=== PATIENT | female | born 1995 | race Caucasian/White ===

== ENCOUNTER 2025-05-04 22:31 | Emergency (ER) | payer SELFPAY ==
--- OUTSIDE RECORDS SUMMARY | 2023-11-09 09:30 | XMS_ITS ---
Author Organization [facility] Address [address] [place] [address] Care Team Providers Care All Round Butcher Name Role Phone Emily Ko Primary Care Provider Unavailab Deborah Owens Unavailable [phone] Mis Lao Unavailable Unavailable Maya Chong Unavailable [phone] REASON FOR VISIT sut Encounters Encounter Location Date Provider Diagnosis [facility] [address] [place] [id number] 11/09/2023 Maya Chong Plan Of Treatment No Information Progress Notes * Ellie LYDOB:1995 (29 yo F)Acc No.[id number]:11/09/2023 Patient: Kelton Ellie cool Provider: Kelton Chong PA-C :1995 A ge:28 Y S ex:Female Date:11/09/2023 Address:[address], [id number] Pcp:Emily Ko Patient's Default Facility:[facility] * Electronic signature of Christiane Chong PA-C on 05/04/2025 at 10:41 PM [facility] Sign off status: Pending * Provider: Kelton Chong PA-C Date: 0 11/09/2023 Generated for Abraham arango/Raisa/eTransmitting on: 1 07/04/2024 10:41 PM [facility]
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
--- OUTSIDE RECORDS SUMMARY | 2025-05-04 22:41 | XMS_ITS | Data Portability ---
Author Organization PUNEET Lugo MD, Main Office Address [address] [place], [place] [address] [address] [place] [address] Care Team Providers Care Slice Plug Cutter Operator Name Role Phone [facility] Primary Care Provide r Assessment No assessment recorded. Plan of Treatment Reminders Order Date Submit Date Provider Last Modified By Organization Details Last Modified Time Details Appointments None recorded. Lab vitamin D, 25-hydroxy , total, serum [address] (Central Scheduling), [address] [place], [place] [address], [address], 8 13:09:03 BMP, blood [address] (Central Scheduling), [address] [place], [place] [address], [address], 8 13:09:03 HbA1c (hemoglobi n A1c), blood [address] (Central Scheduling), [address] [place], [place] [address], [address], 8 13:09:03 lipid panel, blood [address] (Central Scheduling), [address] [place], [place] [address], [address], 8 18:48:29 HbA1c (hemoglobi n A1c), blood [address] (Central Scheduling), [address] [place], [place] [address], [address], 8 18:48:28 TSH + T4, serum [address] (Central Scheduling), [address] [place], [place] [address], [address], 8 18:48:28 thyroperox idase Ab, serum [address] (Central Scheduling), [address] [place], [place] [address], [address], 8 10:11:55 TSH, serum or plasma [address] (Central Scheduling), [address] [place], [place] [address], [address], 8 10:11:55 CBC w/ diff [address] (Central Scheduling), [address] [place], [place] [address], [address], 8 18:48:28 CMP, serum or plasma [address] (Central Scheduling), [address] [place], [place] [address], [address], 8 18:48:28 vitamin D, 25-hydroxy , total, serum 2017 018 [facility] (Central Scheduling), [address] [place], [place] [address], [address], 8 14:27:56 vitamin B12 + folate, serum or blood 2017 018 [facility] (Central Scheduling), [address] [place], [place] [address], [address], 8 12:03:54 Referral endocrinol ogy referral - 22 YO Female w/ worsening fatigue, h/o treatment for hyperinsul inism, obesity, & thyroid disorder. Please evaluate & treat. Thanks 2017 018 ANGEL Miller MD, [address] [place], [address], 8 23:57:43 Procedures None recorded. Surgeries None recorded. Imaging None recorded. Medication Orders Vitamin D2 1,250 mcg (50,000 unit) capsule 2017 [facility], [address] [place] [address], [place], [address], 8 13:49:13 Patient TargetsNo targets recorded. Patient Instructions Encounter Date Encounter Id Patient Instructions Last Modified By Organization Details Last Modified Time 10/06/2017 [id number] Quitting Tobacco : Care Instructions Not available 10/06/2017 15:47:13 smoking cessatio n counseling, greater than 3 minutes up to 10 minutes* Not available 10/14/2017 13:06:22 1. Continue current medications. 2. Maintain a low sodium, low carbohydrate, moderate protein eating pattern. 3. Increase exercise as tolerated. Not available 10/06/2017 15:38:21 1. Patient education provided regarding medical diagnosis, medication dose/adherence, diet, exercise, & treatment plan. 2. Patient's comprehension is good. Labs ordered. 3. Patient was offered a copy of today's visit summary. 4. Continue f/u w/ subspecialists; n/a. 5. Patient understands her role & personal responsibility for physical & emotional health. Health Maintenance: Flu vaccine:07/2017 Pneumovax 23:n/a Prevnar 13:n/a Tdap:2014 Zostavax:n/a Pap:03/2017 MMG:n/a DEXA:n/a C-scope:n/a Not available 10/06/2017 17:45:35 10/20/2017 [id number] Quitting Tobacco : Care Instructions Not available 10/20/2017 13:42:39 1. Start Vitamin D2. 2. Maintain a low sodium, low carbohydrate, moderate protein eating pattern. 3. Increase exercise as tolerated. Not available 10/20/2017 12:34:38 1. Patient education provided regarding medical diagnosis, medication dose/adherence, diet, exercise, & treatment plan. 2. Patient's comprehension is good. Lab results reviewed w/ Pt. 3. Patient was offered a copy of today's visit summary. 4. Continue f/u w/ subspecialists; n/a. 5. Patient understands her role & personal responsibility for physical & emotional health. Health Maintenance: Flu vaccine:07/2017 Pneumovax 23:n/a Prevnar 13:n/a Tdap:2014 Zostavax:n/a Pap:03/2017 MMG:n/a DEXA:n/a C-scope:n/a Not available 10/20/2017 12:35:45 Reason for Referral Endocrinology Referral for H yperinsulinism Chronic fatigue, h/o very elevated insulin, high nl thyroid 22 YO Female w/ worsening fatigue, h/o treatment for hyperinsulinism, obesity, & thyroid disorder. Please evaluate & treat. Thanks Referring Physician: Ysabel Lugo, Internal Medicine, Encounter Date: 10/20/2017 Results Created Date Observation Date Name Description Value Unit Range Abnormal Flag Note LastModifiedBy Organization Detail LastModifiedTime Result Notes None recorded. Problems Name Problem SNOMED Code Status Onset Date Resolution Date Notes Provider Name and Address Organization Details Recorded Time Fatigue 03434225 Active 2017 [place] [address] [facility] [address], [place], [address], PUNEET Lugo MD 8 15:42:48 Tobacco dependence, continuous 694129004 Active 2017 [place] [address] [facility] [address], [place], [address], P[place]EET Lugo MD 8 15:42:50 Gestational diabetes mellitus 64356142 Active 2017 [place] [address] [facility] [address], [place], [address], PUNEET Lugo MD 8 15:42:51 Obesity 558768671 Active 2017 [place] [address] [facility] [address], [place], [address], PUNEET Lugo MD 8 15:43:23 Foot pain 82563391 Active 2017 [place] [address] [facility] [address], [place], [address], PUNEET Lugo MD 8 17:44:36 Anxiety disorder 936994963 Active 2017 [place] [address] [facility] [address], [place], [address], PUNEET Lugo MD 8 12:30:28 Past history of gestational diabetes mellitus 137268915 Active 2017 [place] [address] [facility] [address], [place], [address], PUNEET Lugo MD 8 12:31:00 Vitamin D deficiency 21247853 Active 2017 [place] [address] [facility] [address], [place], [address], PUNEET Lugo MD 8 12:33:29 Problem Notes None recorded. Procedures Surgical History Date Name Laterality Status Provider Name and Address Organization Details Recorded Time 08/24/19 18 [place] [address] [facility] [address], [place], [address], PUNEET Lugo MD 10/06/2017 18:26:40 04/19/20 17 Date of Last [place] [address] [facility] [address], [place], [address], [place]UNEET Lugo MD 10/06/2017 18:37:43 06/13/19 14 Tooth root removal completed Shira Santos MD 10/06/2017 14:56:36 06/13/19 02 Tonsillectomy completed Shira Santos MD 10/06/2017 14:56:46 06/13/18 96 Ear Tube completed Shira Santos MD 10/06/2017 14:57:01 Imaging Results None recorded. Procedure Notes None recorded. Medical Equipment Implant [employer] Issuing Agency Serial Number Lot Number Status Provider Name and Address Organization Details Recorded Time [place] [address] [facility] [address], [place], [address] PUNEET Lugo MD 10/06/2017 15:38:49 Allergies Allergen ID Allergen Name Allergen Category Reaction Reaction Severity Criticality Documentation Date Start Date Code Code System Note Provider Name and Address Organization Details Recorded Time 1016 Substance with sulfonami de structure and antibacte rial mechanism of action (substanc e) medicatio n hives moderate Not available 10/06/2017 33728 8003 SNOMED [place] Bassett MD 8 14:48:02 Medications Name Sig Start Date Stop Date Status Note LastModified by Organization Details LastModified Time Mirena 21 mcg/24 hr (up to 8 years) 52 mg intrauterine device Take by intrauterin e route as directed. active Not Available Not Available No t Available Vitamin D2 1,250 mcg (50,000 unit) capsule Take 1 capsule every week by oral route. 2017 active Not Available Not Available Not Avai lable Vitals Date Recorded Body height Heart rate Respiratory rate Body temperature Body mass index (BMI) Body weight Oxygen saturation Systolic And Diastolic Provider Name and Address Organization Details Last Updated DateTime 8 157.48 cm 100 /min 16 /min 97.5 [degF] 37.7 kg/m2 95957.1 1 g 98 % 122/80 mm[Hg] Shira Santos MD 8 14:47:41 Date Recorded Body height Heart rate Respiratory rate Body temperature Body mass index (BMI) Body weight Oxygen saturation Systolic And Diastolic Provider Name and Address Organization Details Last Updated DateTime 8 157.48 cm 86 /min 15 /min 97.1 [degF] 37.6 kg/m2 84192.3 1 g 96 % 104/68 mm[Hg] Shira Santos MD 8 11:56:27 Social History Question Answer Notes LastModified by Organizat ion Details LastModified Time Tobacco Smoking Status Current Every Day Smoker 2 per day h/o 1 PPD 10/20/17 Not Available [employer] 04/15/2020 03:35:51 Do You Have An Advance Directive? No [id number] Information not available 04/15/2020 What Is Your Level Of Caffeine Consumption? None 10/20/17 [id number] Information not available 04/15/2020 How Much Tobacco Do You Chew? None [id number] Information not available 04/15/2020 Which Illicit Or Recreational Drugs Have You Used? None [id number] Information not available 04/15/2020 Single Or Multi-level Home/work? Single Level Home Information not available 10/06/2017 Live Alone Or With Others? With Others Mom, Dad, Boyfriend, 3 Yo Daughter. Boyfriend Is A Heavy Smoker & Heavy Drinker Information not available 10/06/2017 Education Level 2 Yr College Informa tion not available 10/06/2017 Marital Status 08/2015 Informatio n not available 10/06/2017 What Was The Date Of Your Most Recent Tobacco Screening? 10/20/2017 [id number] Information not available 04/15/2020 Do You Have Any Pets? Yes Cat, Dog, Tadpoles [id number] Information not available 04/15/2020 How Many Years Have You Smoked Tobacco? 5 [id number] Information not available 04/15/2020 Sex: Unknown Functional Status Question Answer Note LastModified by Organizat ion Details LastModified Time What is your level of alcohol consumption? Occasional special occasions, h/o heavy Etoh use until 1-1/2 yr ago 10/20/17 [id number] Information not available 04/15/2020 Are you able to walk independently without assistance or assistive devices? YESWOREST [id number] Information not available 04/15/2020 Are you able to care for yourself independently? 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 Moderate 30-45 minutes qod, squats, shuttle, curl ups. Started 09/20/17 [id number] Information not available 04/15/2020 Mental Status None recorded. Family History Relationship Description Onset Age of this Age Resolved Age Notes LastModified by Organization Details LastModified Time Paternal Grandfather Heart disease Not available 2017 14:49:11 Paternal Grandfather Arthritis Not available 09/12 14:49:46 Paternal Grandfather Hypertensive disorder Not available 2017 14:50:44 Paternal Grandfather Diabetes mellitus Not available 2017 14:52:23 Paternal Grandfather Malignant neoplasm of oral cavity Not available 09/12 14:53:13 Father Heart disease Not available 2017 14:49:11 Father Arthritis Not available 10/06/2017 14:49:46 Father Depressive disorder Not available 2017 14:50:17 Father Hypertensive disorder Not available 2017 14:50:44 Father Diabetes mellitus Not available 2017 14:52:23 Maternal Grandmother Arthritis Not available 09/12 14:49:46 Maternal Grandmother Depressive disorder Not available 2017 14:50:17 Maternal Grandmother Osteoporosis Not available 0 10/06/2017 14:51:10 Maternal Grandfather Arthritis Not available 09/12 14:49:46 Maternal Grandfather Depressive disorder Not available 2017 14:50:17 Maternal Grandfather Carcinoma of prostate Not available 2017 14:51:25 Paternal Grandmother Arthritis Not available 09/12 14:49:46 Paternal Grandmother Hypertensive disorder Not available 2017 14:50:44 Paternal Grandmother Osteoporosis Not available 0 10/06/2017 14:51:10 Mother Arthritis Not available 10/06/2017 14:49:46 Mother Fibrocystic disease of breast Not available 2017 14:52:41 Medical History Condition Response Hypothyroidism Y Depression Y Diabetes Y Anxiety Disorder Y Gynecological History Statement/Question Response Date of Last Pap Smear 04/19/2017 Duration of Flow (days) 1 Flow Light Age at Menarche 10 Date of LMP 10/16/2017 Obstetrics History GPAL:G 1 P 1 0 0 1 Type Value Full Term 1 Living 1 Total 1 Immunizations Vaccine Type Date Status Note Provider Nam e and Address Organization Details Recorded Time Influenza, split virus, quadrivalent, preservative 8 completed PUNEET Bassett MD 10/06/2017 14:48:46 Tdap 4 [place] [address], [place], [address] PUNEET Lugo MD 10/06/2017 15:37:24 Past Encounters Encounter ID Performer Location Encounter Start Date Encounter Closed Date Diagnosis/Indication Diagnosis SNOMED-CT Code Diagnosis ICD10 Code Diagnosis IMO Codes Diagnosis Note [id number] Ysabel Lugo MD Main Office [address] [address] 10/06/2017 14:33:25 10/06/2017 15:45:19 Fatigue 48060148 R53.83 Tobacco de pendence, continuous 190395883 F17.290 Gestationa l diabetes mellitus 96216685 O24.419 H/o tx w/ Insulin & Metformin. Obesity 925708477 E66.9 Z68.37 Contineu exercise. Disorder o f thyroid gland 58036532 E07.9 H/o Hypothyroi dism. Request prior PCP notes & test results. H/o tx w/ Synthroid. Foot pain 21676853 M79.6 70 s/p sprain in 06/2017. Request xray report from [facility]. [id number] Ysabel Lugo MD Main Office [address] [place] [address] 10/20/2017 11:50:02 10/20/2017 14:04:24 Fatigue 68761230 R53.83 Persistent . TSH is high nl. H/o treatment w/ Synthroid. Could be due to low Vitamin D. Obesity 854804058 E66.9 Z68.37 Increase exercise. Tobacco de pendence, continuous 957126693 F17.290 Urged to quit. Hyperinsulinism 52179583 E16.1 H/o Treatment w/ Metformin. Refer to Endocrinol ogist for further evaluation . Vitamin D deficiency 347 [address]3716 E55.9 New. Start Vit D2 50,000 Units weekly. Past pregn keyla history of gestational diabetes mellitus 347528810 Z86.32 HbA1c 5.4%. Anxiety disorder F41.9 Improved w/o meds. Faina thyroiditis 21 353466 E06.3 Synthroid was rx'd in the past. Refer to Endocrinol ogist for further evaluation . Health Concerns Section Related Observation LastModified by Organization Detai ls LastModified Time None Recorded Concern Status LastModified by Organization Details LastModified Time None Recorded Advance Directives Directive N: Payers Insurance Date Sequence Insurance Name Policy Number Policy Sosa Covered Member ID Sosa Member ID Guarantor Name 01/16/2018 1 [facility] ([place] [id number] Ellie Ramirez [id number] Ellie Ramirez Notes Date Note Type Note Provider Name and Address Organization Details Recorded Time 10/06/2017 text/html Generic HPI TemplateReported by PatientHPIFor quality, (21 yo wf new patient w/ chronic obesity, gestational diabetes, hypothyroidism, tobacco use, & h/o etoh abuse.). For severity, (pt denies recent ed/hospital admissions.). For duration, (there are no prior notes available for review.). For onset/timing, (pt is c/o fatigue for the past year.pt is c/o left foot lateral pain since she fell & rolled her ankle in 06/2017. she had a left foot xray last month at [facility].). For context, (h/o gestational diabetes:she was treated w/ metformin & insulin during . metformin was rx'd again 8 months ago. she stopped metformin in 05/2017.h/o hypothyroidism. she took synthroid 125 mcg for a while, then 25 mcg, then discontinued.obesity: pt said she exercises regularly at home.). For associated symptoms, (pt has h/a after not sleeping for 24 hours. she gets dizziness after eating. she goes between diarrhea & constipation. pt denies f/c, cp, sob, palpitations, n/v, & edema.).ROS as [place] [address] [facility] [address], [place], [address], [facility] - Ysabel Lugo MD 10/06/2017 17:46:46 10/20/2017 text/html Generic HPI TemplateReported by PatientHPIFor quality, (21 yo wf w/ chronic obesity, gestational diabetes, hyperinsulinism, hypothyroidism, tobacco use, & h/o etoh abuse.). For severity, (pt denies ed/hospital admissions since her last appt at this clinic.). For duration, (i reviewed [facility] care [facility] from [facility], dated 07-15-17. cc: anxiety-wants to get back on meds, requesting nrt patch, left foot pain. wt 205# pmh: gdm, depression, anxiety, obesity. a/p: anxiety disorder, tobacco use. rx: wellbutrin xl 150 mg daily x 3 days, then increase bid. f/u in 2 wks. 10-08-16: cc: abscess mid thigh. wt. 197#. a/p: lle cellulitis. rx: clindamycin.i reviewed prior pcp notes from [facility] [place], dated 04-19-17. wt 194#. problems: hyperinsulinism, fatigue, tobacco abuse. a/p: pap done. left pelvic pain. tv us ordered. f/u in 4 mos. other notes were dated 02/15/17-04/15/17. 02/15/17 hba1c 5.6%. pelvic us @ [facility] 04-21-17. impression: iud intact. negative. 04/19/17: melody glabrata (+). 04/15/17 insulin 24.3 (nl 2.6-24.9) bmp wnl except glc 117.). For onset/timing, (pt is c/o fatigue, present for the past year.). For context, (h/o gestational diabetes:she was treated w/ metformin & insulin during . metformin was rx'd again 8 months ago. she stopped metformin in 05/2017.h/o hyperinsulinism: treated at [facility] last year w/ metformin.h/o hypothyroidism. she took synthroid 125 mcg for a while, then 25 mcg, then discontinued.obesity: pt said she exercises regularly at home.). For aggravating factors, (long work hours). For alleviating factors, (none). For associated symptoms, (pt denies f/c, cp, sob, palpitations, n/v, & edema. she has sleep-deprived h/a's. she has alternating diarrhea & constipation.).ROS as [place] [address] [facility] [address], [place], [address], PUNEET Lugo MD 10/20/2017 13:42:43 OBGyn Episode No OBEpisode recorded.
--- OUTSIDE RECORDS SUMMARY | 2025-05-04 22:41 | XMS_ITS | Patient Health Record ---
Author Organization [facility] Address [address] [place] [address] Care Team Providers Care Division Leader Name Role Phone Emily Ko Primary Care Provider Unavailab Deborah Owens Unavailable [phone] Mis Lao Unavailable Unavailable Allergies Allergen (clinical drug ingredient) Drug/Non Drug Allergy documented on EMR Reaction Allergy Type Onset Date Status steri strips (uncoded) Unknown Allergy Active Latex latex (uncoded) Unknown Allergy Acti ve sulfa Unknown Drug Allergy Active Reason For Referral No Information Medications Medication SIG (Take, Route, Fr equency, Duration) Notes Start Date End Date Status IBU 800 mg tablet 1 tab(s) orally Ever y 8 hours as needed for pain; Duration: 4 days 10/26/2023 Active IBU 800 mg tablet 1 tab(s) orally 1 ta b every 8 hours as needed for pain; Duration: 4 days 08/10/2023 Active IBU 800 mg tablet 1 tab(s) orally Q 8 hours as needed for pain; Duration: 4 days 07/11/2023 Active Immunizations Vaccine Route Administration Date Status Comme nts Influenza Unknown 06/02/2023 Refused Social History Tobacco Use: Social History Observation Description Date Details (start date - stop date) Current Smoker NA - NA Social History General Social Info Question Answer Notes Alcohol Did you have a drink containing alcohol i n the past year? Yes Points 0 Interpretation Negative Smoking Status: current smoker Additional Details Category Social Info Options Details General Recreational drug use No Exercise No Sunscreen use Yes Utilized a tanning bed Yes Body Piercings/Tattoos Yes Plan Of Treatment Pending Test Test Name Order Date Xray: Skull 07/11/2023 Insurance Providers Payer Name Payer Address Payer Phone Subscriber Number Group Number Insured Name Patient Relationship to Insured Coverage Start Date Coverage End Date [facility] [employer] [address] [place] [address] [id number] Ellie Ly Self - patient is the insured Medical (General) History Surgical History Surgery Date(Month/Year) tonsilectomy 08/2001 11/2020 hysterectomy 12/2022
--- OUTSIDE RECORDS SUMMARY | 2025-05-04 22:41 | XMS_ITS | Patient Health Record ---
Author Organization formerly [facility] Address [address] [place] [address] Phone [phone] Care Team Providers Care Cumulative Effects Analyst Name Role Phone Bill Harriet TAVARES Primary Care Provider + [phone] Allergies Allergen (clinical drug ingredient) Drug/Non Drug Allergy documented on EMR Reaction Allergy Type Onset Date Status Substance with sulfonamide structure and antibacterial mechanism of action (substance) Sulfa Antibiotics Review Dt: 04/19/2017 Drug Allergy Active Reason For Referral No Information Medications Medication SIG (Take, Route, Frequency, Duration) Notes Start Date End Date Diagnosis (ICD Code) Status Vitamin - Tablet as directed Orally Active Social History Sex Observation Social History Observation Description Sex Observation Female Sexual Orientation Social History Observation Description Sexual Orientation Straight or heterose xual Gender Identity Social History Observation Description Gender Identity Female Social History Additional Details Category Social Info Options Details Migrated Social History Migrated Social History Alcohol Intake: Occasional 02/15/2017,Tobacco Years: 5 02/15/2017,Smoking Status: CurrentlyEveryDay 02/15/2017 , ; Plan Of Treatment No Information Insurance Providers Payer Name Payer Address Payer Phone Subscriber Number Group Number Insured Name Patient Relationship to Insured Coverage Start Date Coverage End Date [facility] [address] [place] [phone] [id number] Ellie Ji Self - patient is the insured Medical (General) History Medical History History ICD Code Hyperinsulinism Fatigue Surgical History Surgery Date(Month/Year) Ent surgery 06/13/1996 Tonsillectomy 06/13/2001 section 11/2020
[2025-05-04 22:42] VITALS: BP 126/77; PULSE 82; RESP 16; TEMP 36.9; O2SAT 100; BMI 36.6
[2025-05-04 22:47] VITALS: BP 126/77; PULSE 82; RESP 16; TEMP 36.9; O2SAT 100
--- NOTE | 2025-05-04 23:09 | W.ED.EXTPRO ---
HPI - Extremity Problem General: Chief complaint: Extremity Injury, Lower Stated complaint: Hurt LT Calf Time Seen by Provider: 05/04/25 22:33 History of Present Illness: Patient is a 29-year-old female with no past medical history who presents to the ED after a fall and left leg pain. Describes hitting a curb and hearing a pop of her left lower leg and has not been able to ambulate on it since. 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 No prior orthopedic history to her left lower extremity. Related Data Previous Rx's ?Medication ?Instructions ?Recorded celecoxib 100 mg capsule (Celebrex) 100 mg PO BID #20 caps 05/05/25 methocarbamol 750 mg tablet 750 mg PO Q8H #20 tabs 05/05/25 Allergies Allergy/AdvReac Type Severity Reaction Status Date / Time No Known Allergies Allergy Verified 05/04/25 22:47 Review of Systems General: Reports: 10 or more systems reviewed and unremarkable except in HPI and below Musc: Reports: extremity pain and extremity swelling Physical Exam Narrative: EXAM NARRATIVE: Well-appearing, vital stable on arrival, no acute distress. Left calf mildly swollen compared to right, no overlying erythema, bruising, warmth. No lacerations or abrasions, plantar flexion intact, limited range of motion with dorsiflexion. Full range of motion in no tenderness, skin changes at left hip, ankle and knee. Compartments firm but DP and PT pulses 2+. No other traumatic injuries seen. Course Vital Signs: Vital signs: Vital Signs Temperature 98.4 F 05/04/25 22:47 Pulse Rate 76 05/05/25 02:26 Respiratory Rate 14 05/05/25 02:26 Blood Pressure 127/79 05/05/25 02:26 Pulse Oximetry 98 05/05/25 02:26 Oxygen Delivery Me thod Room Air 05/04/25 22:47 MDM - Extremity (Nontraumatic) Medical Decision Making -ddx: Achilles sprain versus rupture, considered but less likely knee versus ankle injury, neurovascular injury, compartment syndrome -- Patient appears after isolated mild trauma, seemingly with some degree of Achilles injury, will get ultrasound to further assess for complete rupture of her sprain and consider x-rays if ultrasound imaging is completely negative, patient declining any pain medication at this time. -US soft tissue negative for achilles pathology, did have a small amount of hematoma inatrmuscularly, believed to have some degree of pulled muscle injury, but NV intact, 5/5 motor and sensation, pain and cramping controlled with medications and able to be discharged with crutches and multimodal pain medications and ortho fu as needed, dc'd in stable condition with at bedside and will be driving after her Oxycodone was given. Lab Data Radiology Impressions Soft Tissue Ultrasound 05/05/25 23:05 IMPRESSION: Intact Achilles tendon. Fluid between calf muscles may reflect hematoma. All radiology interpretation(s) finalized by discharge Discharge Plan Discharge Patient Disposition: Home Clinical Impression: Calf pain, Hematoma of muscle Condition: Stable Prescriptions: New celecoxib [Celebrex] 100 mg capsule 100 mg PO BID Qty: 20 0RF methocarbamol 750 mg tablet 750 mg PO Q8H Qty: 20 0RF Discharge Orders: Discharge ED (Routine); Ordered 05/05/25 Ordered By: Carlton Philip Referrals: Joe Orellana III, MD [Staff Physician, Orthopedics] - 4-7 days Discharge Diet: Usual diet Discharge Activity: Limit activity as instructed Patient Instructions: Opioid Safety, Pain Management, Patient Portal & [facility] Instructions Activity Restrictions/Additional Instructions: You were seen after your leg injury, you were evaluated with an ultrasound which found you to have a hematoma which is some bruising/blood that is in your left calf muscle, this is suggestive of some underlying tendon/ligament injury, but your Achilles was intact and this should be nothing surgical. The treatment over the next 24-48 hours is complete rest, keep the leg elevated, use ice packs 20 minutes at a time every few hours help with the swelling. In addition, use the stronger anti-inflammatory Celebrex, 100 mg every 12 hours as needed, this is in place of ibuprofen. You can still use Tylenol, 650 mg every 6 hours as needed. In addition, use the Robaxin, 750 mg every 8 hours as needed for cramps and spasms. After 48 hours, slowly resume normal activity as your body allows. If in 1 week's time, the pain is persistent or worse, make an appointment with orthopedics clinic listed above for reevaluation and potential further imaging. Return to the ED with severe worsening of the pain, inability to move or feel your lower leg, severe redness, swelling at the site, or any other emergent concerns. 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
[2025-05-04 23:10] VITALS: BP 128/59; PULSE 88; O2SAT 97
[2025-05-05 00:43] VITALS: BP 128/59; PULSE 68; O2SAT 99
[2025-05-05] MEDS: oxyCODONE 5 mg IR Tab/Cap PO (02:15)
[2025-05-05 02:26] VITALS: BP 127/79; PULSE 76; RESP 14; O2SAT 98
--- NOTE | 2025-05-05 23:05 | USR_ITS ---
PROCEDURE INFORMATION: Exam: US Left Limited Joint or Other Non-Vascular Extremity Structure Exam date and time: 05/05/2025 12:30 AM Age: 29 years old Clinical indication: Pain; Lower leg; Left; Additional info: Fall, pop, severe calf ttp->achilles rupture TECHNIQUE: Imaging protocol: US left limited joint or other nonvascular extremity structure. Real-time ultrasound with image documentation. Exam focused on the area of clinical interest. COMPARISON: No relevant prior studies available. FINDINGS: Soft tissues: Normal intact Achilles tendon. Patient directed evaluation of the area of concern in the posterior and lateral calf demonstrates a fluid-filled cleft between the muscular layers. US/US soft tissue/extremity [id number] IMPRESSION: Intact Achilles tendon. Fluid between calf muscles may reflect hematoma.
== END 2025-05-05 02:27 | disposition home or self-care (01) ==
PROVIDERS: Emergency Provider Student in an Organized Health Care Education/Training Program
DX: S80.12XA Contusion of left lower leg, initial encounter (principal); W19.XXXA Unspecified fall, initial encounter
CPT/HCPCS: 76882; 99284; J9999